=== PATIENT | female | born 1965 | race Caucasian/White ===

== ENCOUNTER 2019-08-04 07:41 | Day surgery (SDC) | payer BC ==
[~2019-08-04 07:41] MED LIST: Buffered Lidocaine 1% SYRIN* 1 ML/SYRINGE INTRADERM ONE; Famotidine IV* 10 MG/ML 2 ML (20 mg) IV ONE; Lactated Ringers 1000 ML Bag* 1,000 ML IV SCH
[2019-08-04] MEDS ORDERED: Famotidine IV* 10 MG/ML 2 ML (20 mg) ONE (07:52)
[2019-08-04] MEDS ORDERED: ceFAZolin 2 GM PREMIX in ORs 2 GM/50 ML BAG ONE (07:52)
[2019-08-04] MEDS ORDERED: Midazolam* 1 MG/ML 5 ML VIAL (5 MG) ONE (08:20)
[2019-08-04] MEDS ORDERED: DiMENhydriNATE IV* 50 MG/ML VIAL IV PUSH PRN (09:18)
[2019-08-04] MEDS ORDERED: oxyCODONE TAB* 5 MG TAB PO PRN (09:18)
[2019-08-04] MEDS ORDERED: Naloxone* 0.4 MG/ML 1 ML VIAL IV PRN (09:18)
[2019-08-04] MEDS ORDERED: Acetaminophen TAB* 325 MG PO PRN (09:18)
[2019-08-04] MEDS ORDERED: Bupivacaine 0.5% SDV PF* 30ML VIAL ONE (09:29)
[2019-08-04] MEDS ORDERED: Lidocaine 1% INJ* 10 MG/ML 30 ML SDV ONE (09:29)
[2019-08-04] MEDS ORDERED: Dexamethasone IV* 4 MG/ML 1 ML (4 MG) ONE (09:29)
[2019-08-04] MEDS ORDERED: Ondansetron INJ* 2 MG/ML VIAL ONE (09:48)
[2019-08-04] MEDS ORDERED: Ketorolac INJ* 30 MG/ML 1 ML VIAL ONE (09:48)
[2019-08-04] MEDS ORDERED: Lidocaine 2% PF * 5 ML VIAL ONE (09:48)
[2019-08-04] MEDS ORDERED: Propofol* 10 MG/ML 20 ML BTL ONE (09:48)
[2019-08-04] MEDS ORDERED: HYDROmorphone INJ* 0.5 MG/0.5 ML SYRINGE ONE (10:04)
[2019-08-04 11:28] VITALS: BP 123/86
--- NOTE | 2019-08-04 17:34 | OP ---
DATE OF OPERATION: 08/04/19 [facility] DATE OF : 69 SURGEON: Odilon Cyr DPM. AGILE SCRUM COACH: None. ANESTHESIA: MAC with local. PRE-OP DIAGNOSIS: Bunion with hallux limitus, left foot. POST-OP DIAGNOSIS: Bunion with hallux limitus, left foot. OPERATIVE PROCEDURE: Cheilectomy of left great toe joint. PATHOLOGY: Degenerative bone. HEMOSTASIS: Pneumatic ankle tourniquet. ESTIMATED BLOOD LOSS: Less than 20 cc. INDICATIONS: The patient with chronic left great toe joint pain, mild bunion deformity and osteophyte proliferation at the dorsal aspect of the joint. She has pain while wearing any closed shoes, pain while walking, and opts for surgery at this time to attempt to decrease the pain and improve the function of the left great toe joint. DESCRIPTION OF PROCEDURE: The patient was brought to the operating room and placed on the operating table in the supine position. The anesthesia department administered IV sedation and a peripheral nerve block was performed about the left foot with a 1:1 mixture of 1% lidocaine plain and 0.5% Marcaine plain. The left foot was then prepped and draped in the usual fashion. An Esmarch bandage was utilized to exsanguinate the left foot and the pneumatic ankle tourniquet was inflated to 250 mmHg about a well-padded left ankle. Attention was directed to the dorsomedial aspect of the left great toe joint. A linear incision was made. The incision was deepened through the subcutaneous tissues with care being taken to retract the neurovascular structures and cauterize superficial bleeders as needed. A linear capsular incision was made to allow for exposure of the joint. There was noted to be an abundance of synovial fluid and some pink synovitis. There was a large osteophyte proliferation at the dorsomedial and dorsolateral aspects of the first metatarsal head and adjacent base of the proximal phalanx. Using a sagittal saw , rongeur, and sonia, this was resected to desired pentecostal of the general contour of the first metatarsal and the base of the proximal phalanx. There was noted to be some full-thickness cartilaginous erosions at the dorsal and central most aspects of the first metatarsal head and the remaining portion of the joint was relatively healthy. Surgical site was flushed with copious amounts of normal sterile saline. The joint was put through range of motion and found to be significantly improved. Some redundant hypertrophic synovium and synovitis was resected. Again, the surgical site was flushed with copious amounts of normal sterile saline. The periosteal and capsular tissues were reapproximated and secured with 2-0 Vicryl. The subcutaneous tissues were reapproximated with 4-0 Vicryl and skin was closed with 5-0 nylon; 12 mg of dexamethasone phosphate was infiltrated about the surgical site and the incision was dressed with Xeroform gauze, 4x4 gauze, [place], and light Coban wrap was applied. The pneumatic ankle tourniquet was deflated about the left ankle and a prompt hyperemic response was noted about all 5 digits of the patient's left foot. Having appeared to tolerate the procedure and anesthesia well, the patient was transported via cart from the operating room to Recovery in satisfactory condition with capillary refill less than 3 seconds to all digits of the left foot. [id number]/[facility] #: [id number] JEANETTE
== END 2019-08-04 11:28 | disposition home or self-care (01) ==
LOC: OREAST 07:41
PROVIDERS: ATTEND Podiatrist Foot Surgery
DX: M20.5X2 Other deformities of toe(s) (acquired), left foot (principal); M21.612 Bunion of left foot
CPT/HCPCS: 81025; 88304; 88311; J0690; J1100; J1170; J1885; J2250; J2405; J2704; J3490